=== PATIENT | female | born 1960 | race Caucasian/White ===

== ENCOUNTER 2018-05-21 00:38 | Observation (INO) | payer OTHER ==
[2018-05-21] MEDS ORDERED: ACETAMINOPHEN 325 MG TABLET ONE (02:17)
[2018-05-21 02:25] LABS: Absolute Lymphocytes (CBC) 1.6 K/uL (0.7-4.9); Absolute Monocytes 0.6 K/uL (0.1-1.3); Basophils % 0.6 % (0-1.3); Eosinophils % 1.6 % (0-4.4); Hematocrit 39.1 % (36.0-45.0); Lymphocytes % 25.8 % (15.3-44.8); Monocytes % 9.5 % (3.3-12.3); RBC Red Blood Cell Count 4.46 M/uL (3.86-4.86)
[2018-05-21 02:35] LABS: Protime INR 0.94
[2018-05-21 02:39] LABS: ALT/SGPT 29 U/L (12-78); AST/SGOT 31 U/L (15-37); Alkaline Phosphatase 60 U/L (45-117); BUN Blood Urea Nitrogen 14 mg/dL (7-18); Bicarbonate 29 mmol/L (21-32); Bilirubin Direct 0.1 mg/dL (0-0.2); Bilirubin Total 0.3 mg/dL (0.2-1.0); Glucose Level 117 mg/dL (74-106); NT PRO-BNP 22 pg/mL (<125); Sodium Level 142 mmol/L (136-145); Troponin (Emerg Dept Use Only) < 0.02 ng/mL (0.0-0.045)
[2018-05-21] MEDS ORDERED: LIDOCAINE 1% MPF 5 ML VIAL ONE (03:03)
[2018-05-21] MEDS ORDERED: ONDANSETRON 4 MG/2 ML VIAL ONE (03:17)
[2018-05-21] MEDS ORDERED: TETANUS & DIPHTHERIA TOX,ADULT 0.5 ML VIAL ONE (03:37)
--- NOTE | 2018-05-21 03:42 | EDPHYS ---
Physician Documentation [facility] Name: Opal Benito Age: 58 yrs Sex: Female : 1960 Arrival Date: 05/21/2018 Time: 00:44 Bed 7 Private MD: ED Physician Ran Sidhu HPI: 05/21 03:31 This 58 yrs old Female presents to ER via EMS with complaints of Head Injury gs With LOC-Adult. 03:31 The patient has experienced syncope, collapsed. Onset: The symptoms/episode gs began/occurred acutely, just prior to arrival. Duration: This was a single episode. Associated injury: Head/face: laceration, 6 cm(s). Associated signs and symptoms: Pertinent negatives: abdominal pain, agitation, chest pain, confusion, headache. Current symptoms: Currently, the patient is not experiencing any symptoms, the patient feels back to baseline. The patient has not experienced similar symptoms in the past. Historical: - Allergies: 00:50 No Known Allergies; jd3 - Home Meds: 00:50 irbesartan 150 mg oral tab 1 tab once daily [Active]; jd3 - PMHx: 00:50 Hypertension; jd3 - PSHx: 00:50 right shoulder; jd3 - Immunization history:: Adult Immunizations up to date. - Social history:: Smoking status: Patient/guardian denies using tobacco. - Immunization history: Last tetanus immunization: unknown. - Ebola Screening: : Patient negative for fever greater than or equal to 101.5 degrees Fahrenheit, and additional compatible Ebola Virus Disease symptoms. ROS: 03:31 All other systems are negative. gs Exam: 03:31 Eyes: Pupils equal round and reactive to light, extra-ocular motions intact. Lids and gs lashes normal. Conjunctiva and sclera are non-icteric and not injected. Cornea within normal limits. Periorbital areas with no swelling, redness, or edema. ENT: Nares patent. No nasal discharge, no septal abnormalities noted. Tympanic membranes are normal and external auditory canals are clear. Oropharynx with no redness, swelling, or masses, exudates, or evidence of obstruction, uvula midline. Mucous membranes moist. Neck: Trachea midline, no thyromegaly or masses palpated, and no cervical lymphadenopathy. Supple, full range of motion without nuchal rigidity, or vertebral point tenderness. No Meningismus. Chest/axilla: Normal chest wall appearance and motion. Nontender with no deformity. No lesions are appreciated. Cardiovascular: Regular rate and rhythm with a normal S1 and S2. No gallops, murmurs, or rubs. Normal PMI, no JVD. No pulse deficits. Respiratory: Lungs have equal breath sounds bilaterally, clear to auscultation and percussion. No rales, rhonchi or wheezes noted. No increased work of breathing, no retractions or nasal flaring. Abdomen/GI: Soft, non-tender, with normal bowel sounds. No distension or tympany. No guarding or rebound. No evidence of tenderness throughout. Back: No spinal tenderness. No costovertebral tenderness. Full range of motion. Skin: Warm, dry with normal turgor. Normal color with no rashes, no lesions, and no evidence of cellulitis. MS/ Extremity: Pulses equal, no cyanosis. Neurovascular intact. Full, normal range of motion. Neuro: Awake and alert, GCS 15, oriented to person, place, time, and situation. Cranial nerves II-XII grossly intact. Motor strength 5/5 in all extremities. Sensory grossly intact. Cerebellar exam normal. Normal gait. 03:31 Constitutional: The patient appears alert, awake. 03:31 Head/face: Noted is a laceration(s), that is deep, 6 cm(s). 03:31 ECG was reviewed by the Attending Physician. Vital Signs: 00:50 BP 142 / 90; Pulse 75; Resp 17 S; Temp 98.5(O); Pulse Ox 100% on R/A; Weight 58.06 kg jd3 (R); Height 5 ft. 4 in. (162.56 cm) (R); Pain 5/10; 02:18 BP 117 / 78; Pulse 76; Resp 19 S; Pulse Ox 95% on R/A; jd3 03:12 BP 119 / 76; Pulse 79; Resp 17 S; Pulse Ox 95% on R/A; jd3 04:28 BP 116 / 66; Pulse 83; Resp 16 S; Pulse Ox 95% on R/A; jd3 05:07 BP 110 / 63; Pulse 93; Resp 19 S; Pulse Ox 94% on R/A; jd3 00:50 Body Mass Index 21.97 (58.06 kg, 162.56 cm) jd3 Fairbanks Coma Score: 00:50 Eye Response: spontaneous(4). Verbal Response: oriented(5). Motor Response: obeys jd3 commands(6). Total: 15. Trauma Score (Adult): 00:50 Eye Response: spontaneous(1); Verbal Response: oriented(1); Motor Response: obeys jd3 commands(2); Systolic BP: > 89 mm Hg(4); Respiratory Rate: 10 to 29 per min(4); Fairbanks Score: 15; Trauma Score: 12 Laceration: 03:31 Wound Repair of 6cm ( 2.4in ) subcutaneous laceration to back of head. Distal gs neuro/vascular/tendon intact. Anesthesia: Local anesthetic administered with 5 mls of 1% lidocaine. Wound prep: Simple cleansing. Skin closed with 10 1-0 [place] using staple gun. Patient tolerated well. MDM: 01:15 Patient medically screened. 03:31 Differential Diagnosis: cardiac arrhythmia, cerebrovascular accident, idiopathic gs syncope, seizure. Data reviewed: vital signs, nurses notes, lab test result(s), EKG, radiologic studies. Counseling: I had a detailed discussion with the patient and/or guardian regarding: the historical points, exam findings, and any diagnostic results supporting the discharge/admit diagnosis. Response to treatment: the patient's symptoms have resolved after treatment, and as a result, I will admit patient. 05/21 01:16 Order name: Basic Metabolic Panel; Complete Time: 02:41 05/21 01:16 Order name: CBC with Diff; Complete Time: 02:38 05/21 01:16 Order name: LFT's; Complete Time: 02:41 05/21 01:16 Order name: Magnesium; Complete Time: 02:41 05/21 01:16 Order name: NT PRO-BNP; Complete Time: 02:41 05/21 01:16 Order name: PT-INR; Complete Time: 02:38 05/21 01:16 Order name: Troponin (emerg Dept Use Only); Complete Time: 02:41 05/21 01:16 Order name: XRAY Chest (1 view) 05/21 01:16 Order name: EKG; Complete Time: 01:17 05/21 01:16 Order name: CT Head C Spine 05/21 01:16 Order name: Cardiac monitoring; Complete Time: 01:33 gs 05/21 01:16 Order name: EKG - Nurse/Tech; Complete Time: 01:33 gs 05/21 01:16 Order name: IV Saline Lock; Complete Time: 01:33 gs 05/21 01:16 Order name: Labs collected and sent; Complete Time: 02:33 gs 05/21 01:16 Order name: O2 Per Protocol; Complete Time: 01:33 gs 05/21 01:16 Order name: O2 Sat Monitoring; Complete Time: 01:34 gs EC:31 Rate is 74 beats/min. Rhythm is regular. VT interval is normal. QRS interval is normal. gs QT interval is normal. T waves are Normal. No ST changes noted. Clinical impression: Normal ECG. Interpreted by me. Administered Medications: 02:17 Drug: Tylenol 650 mg Route: PO; jd3 03:00 Follow up: Response: No adverse reaction jd3 03:06 Drug: Zofran 4 mg Route: IVP; Site: right antecubital; jd3 03:39 Follow up: Response: No adverse reaction jd3 03:20 Drug: Lidocaine (1 %) 5 mg {Note: administered by Dr. Sidhu..} Volume: 5 ml; Route: jd3 Infiltration; 04:20 Follow up: Response: No adverse reaction jd3 03:32 Drug: Tetanus-Diphtheria Toxoid Adult 0.5 ml {Internal Auditor: [employer]. Exp: jd3 04/28/2020. Lot #: [id number]. } Route: IM; Site: right deltoid; 04:30 Follow up: Response: No adverse reaction jd3 Disposition: 05/21/18 03:41 Hospitalization ordered by Brain Richmond for Observation. Preliminary diagnosis is Syncope and collapse. - Bed requested for Telemetry/MedSurg (observation). - Status is Observation. jd3 - Condition is Stable. - Problem is new. - Symptoms are resolved. UTI on Admission? No Signatures: Dispatcher [employer] Verónica Munoz RN RN kl Starr, Gregory, MD MD gs Davies, Jonathon, RN RN jd3 Corrections: (The following items were deleted from the chart) 05:20 03:41 Hospitalization Ordered by Brain Richmond MD for Observation. Preliminary diagnosis is Syncope and collapse. Bed requested for Telemetry/MedSurg (observation). Status is Observation. Condition is Stable. Problem is new. Symptoms are resolved. UTI on Admission? No. gs 05:44 05:20 05/21/2018 03:41 Hospitalization Ordered by rBain Richmond MD for Observation. jd3 Preliminary diagnosis is Syncope and collapse. Bed requested for Telemetry/MedSurg (observation). Status is Observation. Condition is Stable. Problem is new. Symptoms are resolved. UTI on Admission? No.
--- NOTE | 2018-05-21 03:42 | ER ---
Nurse's Notes [facility] Name: Opal Benito Age: 58 yrs Sex: Female : 1960 Arrival Date: 05/21/2018 Time: 00:44 Bed 7 Private MD: Diagnosis: Syncope and collapse Presentation: 05/21 00:45 Presenting complaint: EMS states: "She was talking with her children when she had a jd3 syncope episode. she doesn't remember what happened. she was initially A\\T\\O X 2 when we arrived, but she has become more aware at A\\T\\O X 4. she is tired and lethargic now.". Care prior to arrival: Cervical collar in place. Placed on backboard. IV initiated. 18 GA, in the right antecubital area, Glucose check: 119. Mechanism of Injury: Fall from standing position. Trauma event details: Injury occurred in the [facility], Injury occurred: at home. Injury occurred: May 21, 2018. 00:45 Acuity: SHARON 3 jd3 00:45 Method Of Arrival: EMS: [facility] jd3 00:49 Transition of care: patient was not received from another setting of care. Onset of jd3 symptoms was May 21, 2018. Risk Assessment: Do you want to hurt yourself or someone else? Patient reports no desire to harm self or others. Initial Sepsis Screen: Does the patient meet any 2 criteria? No. Patient's initial sepsis screen is negative. Does the patient have a suspected source of infection? No. Patient's initial sepsis screen is negative. Trauma Activation: Alert Physician: ED Physician; Name: Dr. Sidhu; Notified At: 00:46; Arrived At: 00:46 Physician: General Surgeon; Name: ; Notified At: ; Arrived At: Physician: Radiology; Name: Claudette; Notified At: 00:46; Arrived At: 00:46 Physician: Respiratory; Name: ; Notified At: ; Arrived At: Physician: Lab; Name: ; Notified At: ; Arrived At: Historical: - Allergies: 00:50 No Known Allergies; jd3 - Home Meds: 00:50 irbesartan 150 mg oral tab 1 tab once daily [Active]; jd3 - PMHx: 00:50 Hypertension; jd3 - PSHx: 00:50 right shoulder; jd3 - Immunization history:: Adult Immunizations up to date. - Social history:: Smoking status: Patient/guardian denies using tobacco. - Immunization history: Last tetanus immunization: unknown. - Ebola Screening: : Patient negative for fever greater than or equal to 101.5 degrees Fahrenheit, and additional compatible Ebola Virus Disease symptoms. Screenin:36 Abuse screen: Denies threats or abuse. Nutritional screening: No deficits noted. jd3 Tuberculosis screening: No symptoms or risk factors identified. Fall Risk Fall in past 12 months (25 points). Total Marie Fall Scale indicates Low Risk Score (25-44 pts). Fall prevention measures have been instituted. Side Rails Up X 2 Placed close to Nursing Station Frequent Obs/Assesments occuring Family Present and informed to notify staff if they need to leave bedside. Primary Survey: 00:56 NO uncontrolled hemorrhage observed. A: The patient is alert. Airway: patent, No jd3 supplemental oxygen in use on arrival. Oral cavity: clear, Trachea midline. Breathing/Chest: Respiratory pattern: regular, Respiratory effort: spontaneous, unlabored, Breath sounds: clear, bilaterally. Chest inspection: symmetrical rise and fall of the chest. Circulation: Cardiac rhythm: sinus rhythm Heart tones present. Skin color: pink. Disability Alert. Exposure/Environment: A warming method has been applied: A warm blanket has been provided to the patient. 01:50 Reassessment Airway Airway Patent Oxygen No O2 Breathing/Chest Respiratory pattern jd3 Regular Respiratory effort Spontaneous Chest inspection Symmetrical Circulation Pulses Palpable Color Rafael Hernandez Temperature Warm. Secondary Survey: 00:57 HEENT: No deficits noted. Gastrointestinal: Abdomen is soft, Bowel sounds present in jd3 all quadrants. Palpation No deficit noted Patient reports Nausea. : No signs and/or symptoms were reported regarding the genitourinary system. Musculoskeletal: No signs and/or symptoms reported regarding the musculoskeletal system. Assessment: 00:51 General: Appears uncomfortable, Behavior is cooperative, drowsy. Pain: Complains of jd3 pain in back of head Quality of pain is described as aching, tender. Neuro: Level of Consciousness is awake, obeys commands, lethargic, Oriented to person, place, time, Reports a syncopal episode. EENT: No signs and/or symptoms were reported regarding the EENT system. Cardiovascular: Heart tones S1 S2 present Capillary refill < 3 seconds Patient's skin is warm and dry. Rhythm is regular. Respiratory: Airway is patent Respiratory effort is even, unlabored, Respiratory pattern is regular, symmetrical, Breath sounds are clear bilaterally. Denies shortness of breath. GI: Abdomen is flat, non-distended, Bowel sounds present X 4 quads. Abd is soft and non tender X 4 quads. Reports nausea. : No signs and/or symptoms were reported regarding the genitourinary system. Derm: Skin is intact, Skin is dry, Skin is normal, Skin temperature is warm Wound noted Other: dried blood noted to back of head. Musculoskeletal: Circulation, motion, and sensation intact. 01:50 Reassessment: Patient appears in no apparent distress at this time. Patient and/or jd3 family updated on plan of care and expected duration. Pain level reassessed. Patient is alert, oriented x 3, equal unlabored respirations, skin warm/dry/pink. 02:47 Reassessment: Patient appears in no apparent distress at this time. Patient and/or jd3 family updated on plan of care and expected duration. Pain level reassessed. Patient is alert, oriented x 3, equal unlabored respirations, skin warm/dry/pink. 03:30 Reassessment: Patient appears in no apparent distress at this time. Patient and/or jd3 family updated on plan of care and expected duration. Pain level reassessed. Patient is alert, oriented x 3, equal unlabored respirations, skin warm/dry/pink. 04:28 Reassessment: Patient appears in no apparent distress at this time. Patient and/or jd3 family updated on plan of care and expected duration. Pain level reassessed. Patient is alert, oriented x 3, equal unlabored respirations, skin warm/dry/pink. awaiting room assignment. 05:08 Reassessment: Patient appears in no apparent distress at this time. Patient and/or jd3 family updated on plan of care and expected duration. Pain level reassessed. Patient is alert, oriented x 3, equal unlabored respirations, skin warm/dry/pink. hospitalist at bedside. 05:38 Reassessment: Patient appears in no apparent distress at this time. Patient and/or jd3 family updated on plan of care and expected duration. Pain level reassessed. Patient is alert, oriented x 3, equal unlabored respirations, skin warm/dry/pink. Vital Signs: 00:50 BP 142 / 90; Pulse 75; Resp 17 S; Temp 98.5(O); Pulse Ox 100% on R/A; Weight 58.06 kg jd3 (R); Height 5 ft. 4 in. (162.56 cm) (R); Pain 5/10; 02:18 BP 117 / 78; Pulse 76; Resp 19 S; Pulse Ox 95% on R/A; jd3 03:12 BP 119 / 76; Pulse 79; Resp 17 S; Pulse Ox 95% on R/A; jd3 04:28 BP 116 / 66; Pulse 83; Resp 16 S; Pulse Ox 95% on R/A; jd3 05:07 BP 110 / 63; Pulse 93; Resp 19 S; Pulse Ox 94% on R/A; jd3 00:50 Body Mass Index 21.97 (58.06 kg, 162.56 cm) jd3 Sidra Coma Score: 00:50 Eye Response: spontaneous(4). Verbal Response: oriented(5). Motor Response: obeys jd3 commands(6). Total: 15. Trauma Score (Adult): 00:50 Eye Response: spontaneous(1); Verbal Response: oriented(1); Motor Response: obeys jd3 commands(2); Systolic BP: > 89 mm Hg(4); Respiratory Rate: 10 to 29 per min(4); Sidra Score: 15; Trauma Score: 12 ED Course: 00:44 Patient arrived in ED. bb 00:44 Samuel Galicia, RN is Primary Nurse. jd3 00:44 Maintain EMS IV. Dressing intact. Good blood return noted. Site clean \\T\\ dry. Gauge \\T\\ crystal 3 site: 18 G right AC. 00:49 Triage completed. jd3 00:51 Ran Sidhu MD is Attending Physician. gs 00:51 Arm band placed on. EKG completed in triage. Results shown to . jd3 01:[address] via stretcher. kw1 01:36 Patient maintains SpO2 saturation greater than 95% on room air. Thermoregulation: warm jd3 blanket given to patient. 01:37 Patient has correct armband on for positive identification. Bed in low position. Call jd3 light in reach. Side rails up X2. Adult w/ patient. 01:45 XRAY Chest (1 view) In Process Unspecified. EDMS 01:49 CT Head C Spine In Process Unspecified. EDMS 03:20 Assist provider with laceration repair on back of head that was between 2.6 to 7.5 cm jd3 using quincy. Set up tray. Performed by Brain Richmond MD Patient tolerated well. 03:40 Brain Richmond MD is Hospitalizing Provider. 05:27 Patient admitted, IV remains in place. jd3 Administered Medications: 02:17 Drug: Tylenol 650 mg Route: PO; jd3 03:00 Follow up: Response: No adverse reaction jd3 03:06 Drug: Zofran 4 mg Route: IVP; Site: right antecubital; jd3 03:39 Follow up: Response: No adverse reaction jd3 03:20 Drug: Lidocaine (1 %) 5 mg {Note: administered by Dr. Sidhu..} Volume: 5 ml; Route: jd3 Infiltration; 04:20 Follow up: Response: No adverse reaction jd3 03:32 Drug: Tetanus-Diphtheria Toxoid Adult 0.5 ml {Manager Balance: [employer]. Exp: jd3 04/28/2020. Lot #: [id number]. } Route: IM; Site: right deltoid; 04:30 Follow up: Response: No adverse reaction jd3 Intake: 05:26 PO: 50ml (Water); Total: 50ml. jd3 Output: 05:26 Urine: 0ml; Total: 0ml. jd3 Outcome: 03:41 Decision to Hospitalize by Provider. 05:25 Patient's length of stay in the Emergency Department was greater than 2 hours. awaiting jd3 room assignment for admission.Patient's length of stay extended due to 05:37 Admitted to Med/surg accompanied by tech, via wheelchair, room 431, with chart, Report jd3 called to Cielo GUNTER 05:37 Condition: stable 05:37 Instructed on the need for admit, Demonstrated understanding of instructions. 05:44 Patient left the ED. jd3 Signatures: Dispatcher [employer] Asuncion Diamond RN RN bb Starr, Gregory, MD MD gs Davies, Jonathon, RN RN jd3 Wilhelm, Kimberly kw
--- NOTE | 2018-05-21 05:52 | P.HP ---
Certification for Inpatient Patient admitted to: Observation With expected LOS: <2 Midnights Practitioner: I am a practitioner with admitting privileges, knowledge of patient current condition, hospital course, and medical plan of care. Services: Services provided to patient in accordance with Admission requirements found in Title 42 Section 412.3 of the Code of Federal Regulations Patient History Date of Service: 05/21/18 Reason for admission: syncope and collapse History of Present Illness: Ms Benito is a 58 years old woman with history of HTN, who was sleeping on the couch last night. His woke her up, and she stud up and start walking to her room. Then, suddenly loss her conscious and then collapse. The patient has no recall of the event. Her says thah she become pale, and she recover her conscious about 30 seconds later. Because the fall, she had a scalp laceration on her occipital area. She has never had similar event in the past. She denied palpitation, chest pain, SOB or any other symptom previous to this episode. The patient states that sometimes, she become dizzy when she change position from been sitting or laying down to standing up. Allergies No Known Allergies Allergy (Unverified 05/21/18 05:20) Home medications list reviewed: Yes - Past Medical/Surgical History -: Hypertension -: right shoulder - Social History Smoking Status: Never smoker CD- Drugs: No Place of Residence: Home Review of Systems 10-point ROS is otherwise unremarkable Physical Examination - Physical Exam General: Alert, In no apparent distress HEENT: Atraumatic, PERRLA, Mucous membr. moist/pink, EOMI, Sclerae nonicteric Neck: Supple, 2+ carotid pulse no bruit, No LAD, Without JVD or thyroid abnormality Respiratory: Clear to auscultation bilaterally, Normal air movement Cardiovascular: Regular rate/rhythm, Normal S1 S2 Gastrointestinal: Normal bowel sounds, No tenderness Musculoskeletal: No tenderness Integumentary: Skin lesion (scalp laceration on occipital area) Neurological: Normal speech, Normal strength at 5/5 x4 extr, Normal tone, Normal affect Lymphatics: No axilla or inguinal lymphadenopathy - Studies Laboratory Data (last 24 hrs) 05/21/18 01:52: PT 11.1, INR 0.94 05/21/18 01:52: WBC 6.4, Hgb 13.1, Hct 39.1, Plt Count 254 05/21/18 01:52: Sodium 142, Potassium 4.0, BUN 14, Creatinine 0.78, Glucose 117 H, Magnesium 2.0, Total Bilirubin 0.3, AST 31, ALT 29, Alkaline Phosphatase 60 Assessment and Plan - Problems (Diagnosis) (1) Syncope and collapse Current Visit: Yes Status: Acute (2) HTN (hypertension) Current Visit: Yes Status: Acute Qualifiers: Hypertension type: essential hypertension Qualified Code(s): I10 - Essential (primary) hypertension - Plan The patient will be admitted to the hospital due to syncope episode. Differential diagnosis are broad, including arrhytmia, orthostatic hypotension. EKG shows SR at [address] abnormalities. T wave inversion in septal leads. CT head shows no acute intracranial abnormalities, posterior parietal scalp laceration, swelling and subcutaneous emphisema. Will order ECHO, continue clinical liaison, check for orthostatic hypotension. consult cardiology team for evaluation and recommendations. - Advance Directives Does patient have a Living Will: No Does patient have a Durable POA for Healthcare: No - Code Status/Comfort Care Code Status Assessed: Yes Code Status: Full Code
[2018-05-21 05:53] VITALS: O2SAT 94
[2018-05-21] MEDS ORDERED: ONDANSETRON 4 MG/2 ML VIAL IV PRN (06:08)
[2018-05-21 06:25] VITALS: BMI 21.7
[2018-05-21] MEDS: NA CHLORIDE 0.9% 1,000 ML IV SCH ×2 (06:29→16:08)
--- NOTE | 2018-05-21 07:14 | EKG ---
Test Date: 2018-05-21 Test Time: 00:47:00 Clerk Rating: MATTHEW MEASUREMENT RESULTS: Intervals: Rate: 74 MD: 170 QRSD: 88 QT: 386 QTc: 428 [place]: P: 69 MD: 170 QRS: 67 T: 49 INTERPRETIVE STATEMENTS: Normal sinus rhythm Possible Left atrial enlargement Borderline ECG No previous ECG available for comparison Electronically Signed On 05-21-18 07:13:26 INTENSIVIST by Alfonso Flood
--- NOTE | 2018-05-21 09:35 | RAD REPORT ---
EXAM DESCRIPTION: RAD - Chest Single View - 05/21/2018 1:46 am CLINICAL HISTORY: Syncope, shortness of breath COMPARISON: None. TECHNIQUE: AP portable chest image was obtained 0144 hours . FINDINGS: No focal lung parenchymal process. Interstitial markings are mildly prominent suspected to be baseline the patient. Acute cardiopulmonary process suspected. Heart and vasculature are normal. No measurable pleural effusion and no pneumothorax. No acute bony abnormality seen. No acute aortic f indings suspected. IMPRESSION: No acute cardiopulmonary process.
--- NOTE | 2018-05-21 10:17 | ECHO ---
HEIGHT: 5 ft 4 in WEIGHT: 126 lb 4.8 oz DATE OF STUDY: 05/21/[address]: Brain Freeman MD 2-DIMENSIONAL: YES M.MODE: YES DOPPLER: YES COLOR FLOW: YES TDS: NO PORTABLE: NO DEFINITY: NO BUBBLE STUDY: NO DIAGNOSIS: SYNCOPE CARDIAC HISTORY: CATHERIZATION: NO SURGERY: NO PROSTHETIC VALVE: NO PACEMAKER: NO MEASUREMENTS (cm) DIASTOLIC (NORMALS) SYSTOLIC (NORMALS) IVSd 0.9 (0.6-1.2) LA Diam 2.9 (1.9-4.0) LVEF 57% LVIDd 4.4 (3.5-5.7) LVIDs 3.1 (2.0-3.5) %FS 30% LVPWd 0.8 (0.6-1.2) Ao Diam 2.5 (2.0-3.7) 2 DIMENSIONAL ASSESSMENT: RIGHT ATRIUM: NORMAL LEFT ATRIUM: NORMAL RIGHT VENTRICLE: NORMAL LEFT VENTRICLE: NORMAL TRICUSPID VALVE: NORMAL MITRAL VALVE: NORMAL PULMONIC VALVE: NORMAL AORTIC VALVE: NORMAL PERICARDIAL EFFUSION: NONE AORTIC ROOT: NORMAL LEFT VENTRICULAR WALL MOTION: NORMAL. DOPPLER/COLOR FLOW: NORMAL. COMMENTS: NORMAL 2D ECHO WITH DOPPLER. TECHNOLOGIST: SANTI FELDMAN
[2018-05-21] MEDS: ACETAMINOPHEN 500 MG TAB PO PRN ×2 (10:31→17:52)
--- NOTE | 2018-05-21 12:44 | CON ---
Chief Complaint: Loss of consciousness. History Of Present Illness: Ms. Benito was in her usual state of health. She takes blood pressure med icines, irbesartan 150 mg once a day. Yesterday was normal in every way except, it was the beginning of spring break, so she slept on the couch after supper and was waiting [place] When [place] got there, she awakened, got out of bed and within a minute o r some uncertain period of time she fell from a standing position. There was a description that she suddenly stopped talking in mid sentence, fell. She was unconscious for a minute or less and had an injury in the back of her head. The back of her head hit first. She has had a CAT scan that looks n ormal. There was no description of tonic-clonic motion or tongue biting or bladder or bowel incontin ence and since she has been here her CAT scan of the head is unremarkable, although it has not been r ead by the radiologist at this point. She has had a variety of blood tests including complete blood count that was normal. Blood sugar random was 117, creatinine 78. Cardiac enzymes normal. Her elec trocardiogram is normal, although the left atrium might be slightly enlarged. She does not report al lergies. She uses no tobacco, no alcohol, no illegal drugs. Physical Examination: General: 5 feet 4 inches, 126 pounds. HEENT: Normal. Lungs: Clear. Neck: Carotids, no bruit. Heart: Normal. Abdomen: Soft. Extremities: Normal. No cyanosis, clubbing, or edema. Distal pulses normal. Diagnostic Data: EKG normal except for left atrial abnormality. Impression: The patient probably had syncope from a blood pressure fall, orthostatic distress. I th ink we have to rule out seizure and cardiac activity after about 8 hours of EKG monitoring, there has been no arrhythmia, and we should get an echo, continue another day of monitoring to see what the ne urologist says and the radiologist says about planned neurological study. DAWSON/CARISA Voice ID: [id number] Report ID: [id number]
--- NOTE | 2018-05-21 15:18 | RAD REPORT ---
EXAM DESCRIPTION: US - CP - 05/21/2018 2:59 pm CLINICAL HISTORY: Syncope COMPARISON: None. TECHNIQUE: Real-time sonographic evaluation of both carotid systems was performed. Landin scale and Do ppler interrogation were performed with waveform tracing bilaterally. FINDINGS: Normal high resistance waveforms are noted in both external carotid arteries. The common c arotid arteries and internal carotid arteries show normal low resistance waveforms. No significant plaque formation is seen in the bilateral common carotid or internal carotid arteries. Minimal plaquing changes in the left external carotid artery not considered significant. Peak systol ic and end diastolic velocity values and the ICA/CCA ratios are in the non-hemodynamically significan t range. Antegrade flow seen in both vertebral arteries. Velocity values and ratios were recorded and are retained in the patient's imaging records. IMPRESSION: No significant atherosclerotic changes noted. No evidence of a hemodynamically significant stenosis.
[2018-05-21 17:08] VITALS: BP 124/72; TEMP 99.7
[2018-05-22] MEDS ORDERED: IRBESARTAN 150 MG TAB PO SCH (09:00)
--- NOTE | 2018-05-23 11:24 | RAD REPORT ---
EXAM DESCRIPTION: CT - Head C Spine Mpr Wo Con - 05/21/2018 2:07 am CLINICAL HISTORY: The patient is 58 years old and is Female; WEAKNESS TECHNIQUE: Axial computed tomography images of the head/brain and cervical spine without intravenous contrast. Sagittal and coronal reformatted images were created and reviewed. This CT exam was pe rformed using one or more of the following dose reduction techniques: automated exposure control, a djustment of the mA and/or kV according to patient size, and/or use of iterative reconstruction techn ique. COMPARISON: None. FINDINGS: BRAIN: Unremarkable. No hemorrhage. No significant white matter disease. No edema . VENTRICLES: Unremarkable. No ventriculomegaly. SKULL: No acute fracture. SINUSES: Unremarkable as visualized. No acute sinusitis. MASTOID AIR CELLS: Unremarkable as visualized. No mastoid effusion. VERTEBRAE: Reversal of normal cervical lordosis C5-6. Trace anterolisthesis of C4 on C5. Multilevel spondylosis and asymmetric left facet arthropathy. No acute fracture. DISCS/SPINAL CANAL/NEURAL FORAMINA: No acute findings. No spinal canal stenosis. SOFT TISSUES: Parietal scalp laceration with mild associated swelling and subcutaneous emphysema o n the right. THYROID: Visualized thyroid is within normal limits. Posterior extension of the right thyroid lobe . LUNG APICES: Atypical chronic lung changes versus interstitial opacities. IMPRESSION: 1. No acute intracranial abnormality. 2. Posterior parietal scalp laceration, swelling and subcutaneous emphysema on the right. 3. No acute fracture or subluxation. 4. Multilevel spondylytic changes. 5. Chronic apical lung changes versus interstitial opacities. Consider dedicated chest CT without con trast for further characterization. Electronically signed by: Ion Roe DO 05/21/2018 1:57 AM PRODUCT STRATEGY DIRECTOR Due to temporary technical issues with the PACS/Fluency reporting system, reports are being signed by the in house radiologist as a courtesy to ensure prompt reporting. The interpreting radiologist is f ully responsible for the content of the report.
== END 2018-05-21 18:07 | disposition home or self-care (01) ==
LOC: ER 00:38 → ERHOLD 05:11 → 4TH 05:40
PROVIDERS: ADMIT Internal Medicine; ATTEND Internal Medicine
PROC: 0JQ00ZZ Repair Scalp Subcutaneous Tissue and Fascia, Open Approach (ICD-10-PCS; principal; 2018-05-21)
DX: R55 Syncope and collapse (principal); S01.01XA Laceration without foreign body of scalp, initial encounter; I10 Essential (primary) hypertension; W01.0XXA Fall on same level from slipping, tripping and stumbling without subsequent striking against object, initial encounter; Y92.009 Unspecified place in unspecified non-institutional (private) residence as the place of occurrence of the external cause; Z23 Encounter for immunization
CPT/HCPCS: 36415; 70450; 71045; 72125; 80048; 80076; 83735; 83880; 84484; 85025; 85610; 90714; 93005; 93306; 93880; 96374; 97162; 99285; G0378; J2405; J7030